=== PATIENT | female | born 1970 | race Caucasian/White ===

== ENCOUNTER 2021-01-05 13:55 | Emergency (ER) | payer MEDICAID ==
[~2021-01-05] VITALS: Ht 154.9 cm; Wt 82.0 kg
[2021-01-05] MEDS ORDERED: ONDANSETRON HCL 4MG/2ML INJ IV STA (15:50)
[2021-01-05] MEDS ORDERED: SODIUM CHLORIDE 0.9% 1,000 ML IV ONE (16:00)
[2021-01-05 16:06] LABS: HEMATOCRIT. 42.8 % (36.0-48.0); HEMOGLOBIN. 15.3 g/dL (12.0-16.0); MEAN CORPUSCULAR HEMOGLOBIN 31.6 pg (28.0-32.0); MEAN CORPUSCULAR VOLUME 88.1 fL (81.0-99.0); MEAN PLATELET VOLUME 7.2 fl (7.4-10.4); PLATELET 336 x1000/uL (130-400); RED BLOOD CELL COUNT 4.85 mill/uL (4.2-5.4); RED CELL DISTRIBUTION WIDTH 12.8 % (11.6-14.6)
[2021-01-05 16:12] LABS: CHLORIDE 108 mEq/L (98-107)
[2021-01-05 17:19] LABS: PLATELET ESTIMATE NORMAL
[2021-01-05] MEDS ORDERED: IBUP-2029 MT (18:09)
[2021-01-05] MEDS ORDERED: BUTA1CAP45 MT (18:09)
[2021-01-05 18:30] VITALS: BP 147/87
== END 2021-01-05 18:31 | disposition home or self-care (01) ==
LOC: ER 13:55
DX: R51.9 Headache, unspecified (principal)
CPT/HCPCS: 36415; 70450; 80053; 85025; 96361; 96374; 99284; J2405; J7030; Z7610